=== PATIENT | male | born 1985 | race Caucasian/White ===

== ENCOUNTER 2019-12-31 18:13 | Emergency (ER) | payer OTHER ==
[~2019-12-31] VITALS: Ht 177.8 cm; Wt 108.9 kg
[2019-12-31 18:26] VITALS: BP_SYST 142
[2019-12-31 18:57] VITALS: BP_SYST 142
== END 2019-12-31 18:57 | disposition home or self-care (01) ==
LOC: SED 18:13
DX: S99.921A Unspecified injury of right foot, initial encounter (principal); X58.XXXA Exposure to other specified factors, initial encounter; Y93.89 Activity, other specified; Y92.89 Other specified places as the place of occurrence of the external cause; Y99.8 Other external cause status
CPT/HCPCS: 99283